=== PATIENT | female | born 1960 ===

== ENCOUNTER 2020-01-01 14:46 | Emergency (ER) | payer OTHER, SELFPAY ==
--- NOTE | ~2020-01-01 | XR_ITS ---
[id number]_[id number] DATE: 01/01/2020 15:34 INDICATION: Fall with arm tucked under breast. Generalized left rib pain TECHNIQUE: PA chest. 3 views of left ribs. COMPARISON: None FINDINGS: No left rib fractures evident. No bone destruction is detected. Normal heart size. No hilar or mediastinal enlargement. No pulmonary infiltrate or consolidation, ple ural effusion or pulmonary vascular congestion or pneumothorax. Status post anterior cervical spine surgical fusion. Status post cholecystectomy. IMPRESSION: No active cardiopulmonary disease No evidence of left rib fracture Reviewed, dictated and finalized at [facility]. Reviewed, dictated and finalized at [facility].
[2020-01-01 15:00] VITALS: BP 112/81; PULSE 60; RESP 18; TEMP 36.9; O2SAT 99
--- NOTE | 2020-01-01 16:00 | ED.GENADULT ---
HPI - General Adult General Chief complaint: Fall Stated complaint: injury to ribs Time Seen by Provider: 01/01/20 15:47 Source: patient and RN notes reviewed Mode of arrival: ambulatory Limitations: no limitations History of Present Illness HPI narrative: Patient presents today complaining of left rib pain. Reports she was pulling weeds 1 week ago at home, and fell back onto her left side with her arm tucked underneath her. Pain has been present and waxes and wanes. Pain increases with movement or deep breath. Currently rates her pain 5/10 and has been taking Advil without relief. complaint: Left rib pain Related Data Home Medications Medication Instructions Recorded Confirmed gabapentin 01/01/20 levothyroxine [Synthroid] 01/01/20 Allergies Allergy/AdvReac Type Severity Reaction Status Date / Time prochlorperazine AdvReac Intermediate Unverified 05/11/19 11:56 latex/paper tape AdvReac Mild Uncoded 11/19/16 16:22 Review of Systems Review of Systems: Narrative: CONSTITUTIONAL: Denies body aches, fever, chills, or sweats. EYES: Denies visual changes, redness, or discharge. ENT: Denies rhinorrhea, congestion, sore throat, or otalgia. CARDIOVASCULAR: Denies chest pain, palpitations, or edema. RESPIRATORY: Denies cough or dyspnea. Left rib pain GASTROINTESTINAL: Denies abdominal pain, nausea, vomiting, or diarrhea. GENITOURINARY: Denies dysuria or hematuria. SKIN: Denies rash, itching, or wounds. MUSCULOSKELETAL: Denies back pain, joint pain, or myalgia. NEUROLOGIC: Denies headache, numbness, tingling, or weakness. PSYCH: Denies depression or anxiety. [facility] Family History Family History (Updated 05/16/19 @ 15:37 by DOCTOR UNKNOWN) Other Family history of arthritis Social History Social History Smoking status: Never smoker Alcohol intake: current Comments At time of signature, I have reviewed and agree with nursing past medical, surgical, social and family history unless otherwise noted. Please see nursing chart for further information. There is no relevant family history pertinent to the presenting complaint Exam Narrative: Exam Narrative: GENERAL: Well-appearing, well-nourished, and in no acute distress. HEAD: Normocephalic, atraumatic. EYES: EOMI. No redness or drainage. Conjunctivae normal. ENT: Mucous membranes pink and moist. NECK: Normal AROM. CHEST: No respiratory distress. Clear to auscultation. Tenderness to left anterior, lateral, and posterior mid rib pain. No edema, ecchymosis, or crepitus noted. HEART: Regular rate and rhythm. No murmur appreciated. Normal peripheral pulses. ABDOMEN: Soft, nontender, nondistended, normal active bowel sounds. MUSCULOSKELETAL: No bony tenderness. EXTREMITIES: Normal range of motion. No edema. SKIN: Warm, dry, no rash. Capillary refill normal. Normal skin turgor. NEURO: No focal deficits. Alert and oriented x3. Gait steady. PSYCH: Normal affect. No signs of depression or anxiety. Course Vital Signs Vital signs: Vital Signs Temperature 98.5 F 01/01/20 15:00 Pulse Rate 60 01/01/20 15:00 Respiratory Rate 18 01/01/20 15:00 Blood Pressure 112/81 01/01/20 15:00 Pulse Oximetry 99 01/01/20 15:00 Temperature 98.5 F 01/01/20 15:00 Pulse Rate 60 01/01/20 15:00 Respiratory Rate 18 01/01/20 15:00 Blood Pressure 112/81 01/01/20 15:00 Pulse Oximetry 99 01/01/20 15:00 Reviewed. Pt has been instructed to follow up with her PCP regarding her elevated blood pressure today. Medical Decision Making Differential Diagnosis Differential Diagnosis: Rib fracture, rib contusion, muscle strain Vital Signs Vital Signs: Vital Signs Temperature 98.5 F 01/01/20 15:00 Pulse Rate 60 01/01/20 15:00 Respiratory Rate 18 01/01/20 15:00 Blood Pressure 112/81 01/01/20 15:00 Pulse Oximetry 99 01/01/20 15:00 Temperature 98.5 F 01/01/20 15:00 Pulse Rate 60 01/01/20 15:00 Respiratory Rate 18
== END 2020-01-01 16:07 | disposition home or self-care (01) ==
PROVIDERS: Emergency Provider Nurse Practitioner
DX: S20.212A Contusion of left front wall of thorax, initial encounter (principal); W19.XXXA Unspecified fall, initial encounter
CPT/HCPCS: 71101; 99213; G0463

== ENCOUNTER 2021-11-16 13:16 | Emergency (ER) | payer OTHER, SELFPAY ==
--- NOTE | ~2021-11-16 | XR_ITS ---
EXAMINATION: XR chest 2V DATE: 11/16/2021 13:59 INDICATION: Shortness of breath. TECHNIQUE: Frontal and lateral views of the chest were obtained. COMPARISON: Chest 2 views 09/08/2016 FINDINGS: The chest demonstrates clear lungs without pneumonia, pleural effusion, or pneumothorax. Th e heart size is normal. There are changes of anterior fusion procedure in cervical spine. IMPRESSION: 1. No acute cardiopulmonary disease. Reviewed, dictated and finalized at [facility]. [employer]
[2021-11-16 13:30] VITALS: BP 124/77; PULSE 65; RESP 16; TEMP 37.3; O2SAT 99
--- NOTE | 2021-11-16 13:30 | ED.GENADULT ---
HPI - General Adult General Chief complaint: Upper Respiratory Infection Stated complaint: Fever/Chest Congestion/Cough Time Seen by Provider: 11/16/21 13:48 Source: patient Mode of arrival: ambulatory Limitations: no limitations History of Present Illness HPI narrative: 61-year-old female patient presents to the [facility] with complaints of cold symptoms for 5 days. Patient states she started with a fever on Thursday as high as 102, body aches, chills. Patient states she has also had a cough with some shortness of breath. Patient states she is fully vaccinated against COVID. Patient states she did get an influenza vaccine this year. Patient states she did have COVID in 2019. Patient states she did take 2 rapid test at home which were both negative. Related Data Home Medications Medication Instructions Recorded Confirmed gabapentin 300 mg PO BID 01/01/20 levothyroxine [Synthroid] 75 mcg PO DAILY 01/01/20 besifloxacin [Besivance] drp 11/16/21 11/16/21 Allergies Allergy/AdvReac Type Severity Reaction Status Date / Time prochlorperazine AdvReac Intermediate Muscle Unverified 11/16/21 13:38 Spasms latex/paper tape AdvReac Mild Unknown Uncoded 11/16/21 13:38 Review of Systems Review of Systems: CONSTITUTIONAL: Positive fever, chills, and body aches. EYES: Denies visual changes, redness, or discharge. ENT: Positive rhinorrhea, congestion, denies sore throat, or otalgia. CARDIOVASCULAR: Denies chest pain, palpitations, or edema. RESPIRATORY: Positive cough with dyspnea. GASTROINTESTINAL: Denies abdominal pain, nausea, vomiting, or diarrhea. GENITOURINARY: Denies dysuria or hematuria. SKIN: Denies rash or itching. MUSCULOSKELETAL: Denies back pain, joint pain, or myalgia. NEUROLOGIC: Denies headache, numbness, or weakness. PSYCHIATRIC: Denies anxiety or depression. [facility] Past Medical History Medical History (Updated 11/16/21 @ 14:20 by DONTRELL De) Arthritis Hypothyroidism Pneumonia Surgical History Surgical History (Updated 11/16/21 @ 13:53 by DNOTRELL De) H/O Spinal surgery Neck surgery hardware/fusion C3, C4, C5, C6 Hx of cholecystectomy Family History Family History (Updated 05/16/19 @ 15:37 by DOCTOR UNKNOWN) Other Family history of arthritis Social History Social History Smoking status: Never smoker Alcohol intake: current Exam Narrative: GENERAL: Well-appearing, well-nourished, and in no acute distress. HEAD: Normocephalic, atraumatic. EYES: PERRLA and EOMI. ENT: Nares with erythema and edema bilaterally, no rhinorrhea or epistaxis. Mucous membranes moist. Posterior pharynx with no erythema, tonsillar lodgment, exudates or lesions present. Bilateral TMs are clear with no erythema or foreign bodies in the canal NECK: Supple. No lymphadenopathy CHEST: Patient sitting slightly tripod during exam. Patient does seem to be talking in broken sentences. Patient is slightly diminished on the left side especially with expiratory HEART: Regular rate and rhythm. No murmur heard. Normal peripheral pulses. ABDOMEN: Soft, nontender, nondistended, normal active bowel sounds. EXTREMITIES: Normal range of motion. No edema. SKIN: Warm, dry, no rash. NEURO: No focal deficits. Alert and oriented x3. Course Course Level of Care: Express Care Visit Vital Signs Vital signs: Vital Signs Temperature 37.3 C 11/16/21 13:30 Pulse Rate 65 11/16/21 13:30 Respiratory Rate 16 11/16/21 13:30 Blood Pressure 124/77 11/16/21 13:30 Pulse Oximetry 99 11/16/21 13:30 Temperature 37.3 C 11/16/21 13:30 Pulse Rate 65 11/16/21 13:30 Respiratory Rate 16 11/16/21 13:30 Blood Pressure 124/77 11/16/21 13:30 Pulse Oximetry 99 11/16/21 13:30 Vital signs reviewed Medical Decision Making Differential Diagnosis Differential Diagnosis: Differential diagnosis: Allergic rhinitis, chronic sinusitis, tonsillitis, acute sinusitis, infectious mononucleosis, s
[2021-11-18 07:58] LABS: SARS-CoV-2 RNA PCR Negative
== END 2021-11-16 14:39 | disposition home or self-care (01) ==
PROVIDERS: Emergency Provider Nurse Practitioner Family
DX: B34.9 Viral infection, unspecified (principal); Z20.822 Contact with and (suspected) exposure to COVID-19; M19.90 Unspecified osteoarthritis, unspecified site; E03.9 Hypothyroidism, unspecified
CPT/HCPCS: 71046; 87426; 87804; 99213; C9803; G0463; U0003; U0005

== ENCOUNTER 2023-05-30 08:43 | Emergency (ER) | payer OTHER, SELFPAY ==
[2023-05-30 09:14] VITALS: BP 126/81; PULSE 71; RESP 20; TEMP 36.2; O2SAT 97
--- NOTE | 2023-05-30 09:22 | ED.URI ---
HPI - URI/Sore Throat General Chief Complaint: Upper Respiratory Infection Stated Complaint: cough,ele,fever Source: patient Mode of arrival: ambulatory Limitations: no limitations History of Present Illness HPI Narrative: 62-year-old female presents to [facility] with complaints of nonproductive cough, head congestion, runny nose and low-grade fevers up to 99.7 for the past 10 days. Patient reports that she took 2 negative home COVID test. Patient is a nonsmoker. Patient denies recent travel. Patient denies sick contacts but reports that she recently started subbing at a local school. Patient has been taking [id number] Advil and complaining sinus rinses with little relief MD elicited complaint: cough, rhinorrhea and nasal congestion Onset (ago): day(s) () Able to tolerate fluids by mouth: Yes Exacerbating factors: nothing Relieving factors: nothing Treatments prior to arrival: ibuprofen Related Data Home Medications Medication Instructions Recorded Confirmed gabapentin 300 mg capsule 300 mg PO BID 01/01/20 05/30/23 levothyroxine 75 mcg tablet 75 mcg PO DAILY 01/01/20 05/30/23 (Synthroid) Allergies Allergy/AdvReac Type Severity Reaction Status Date / Time prochlorperazine AdvReac Intermediate Muscle Verified 05/30/23 09:17 Spasms latex/paper tape AdvReac Mild Unknown Uncoded 11/16/21 13:38 Review of Systems Constitutional: Constitutional: Denies chills, Denies fatigue and Reports fever(s) ENT: Denies dysphagia, Denies vertigo, Denies dizziness, Denies epistaxis, Reports nasal congestion and Denies sore throat Respiratory: Respiratory: Reports cough, Denies dyspnea and Denies wheezing Gastrointestinal: Gastrointestinal: Denies diarrhea, Denies nausea and Denies vomiting Integumentary/Breasts: Skin/Breast: Denies pruritus, Denies erythema and Denies rash Neurologic: Denies dizziness, Denies syncope and Denies headache(s) [facility] Past Medical History Medical History Arthritis Hypothyroidism Pneumonia Surgical History Surgical History H/O Spinal surgery Neck surgery hardware/fusion C3, C4, C5, C6 Hx of cholecystectomy Family History Family History Other Family history of arthritis Social History Social History Smoking status: Never smoker Alcohol intake: current Comments At time of signature, I agree with nursing past medical, surgical, social and family history. There is no relevant family history pertinent to the presenting complaint. Exam Const: General: healthy appearing and no acute distress Nutritional Appearance: well nourished Orientation/consciousness: patient oriented x3 Limitations: no limitations HENMT: Head: normal to inspection Ears: external ears normal, TM's normal bilaterally and EAC's normal Face/Nose/Sinus: Normal external nose present Face and sinus: sinuses nontender Mouth: Yes Normal oral and palatal mucosa present, Yes lip normal and Yes moist mucous membranes Teeth and gingiva: dentition normal Throat: posterior oropharynx normal and uvula midline Other: Moderate bilateral nasal congestion noted Eyes: Conjunctivae: conjunctivae normal Neck: Neck: normal visual inspection Resp: Effort & Inspection: normal respiratory effort Auscultation: clear to auscultation bilaterally, no crackles, no rales and no rhonchi Cardio: Rate: regular rate Rhythm: regular rhythm Heart sounds: no murmurs Skin: General skin exam: normal color Rashes: no rashes Neuro: Speech: normal speech Gait exam (Neuro): Normal gait present Psych: Affect: normal affect Attitude: cooperative Course Course Level of Care: Express Care Visit MDM - URI/Sore Throat MDM Narrative Medical decision making narrative: Instructed patient to take med
== END 2023-05-30 09:42 | disposition home or self-care (01) ==
PROVIDERS: Emergency Provider Nurse Practitioner Family
DX: J06.9 Acute upper respiratory infection, unspecified (principal); J45.909 Unspecified asthma, uncomplicated; E03.9 Hypothyroidism, unspecified
CPT/HCPCS: 99213; G0463

== ENCOUNTER 2023-09-09 10:43 | Emergency (ER) | payer MEDICARE, SELFPAY ==
[2023-09-09 10:59] VITALS: BP 114/77; PULSE 64; RESP 16; TEMP 35.9; O2SAT 99
--- NOTE | 2023-09-09 11:16 | ED.EAR ---
HPI - Ear Problem General Chief complaint: Ear Stated complaint: Right Ear Pain Source: patient, RN notes reviewed and old records reviewed Mode of arrival: ambulatory Limitations: no limitations History of Present Illness HPI Narrative: 63-year-old female presents to [facility] with complaint right ear pressure this started approximately 1 week ago. Patient states he is getting worse. Patient denies any other symptoms MD Complaint: ear pain Location: right ear Duration: intermittent Severity: moderate Related Data Home Medications Medication Instructions Recorded Confirmed gabapentin 300 mg capsule 300 mg PO BID 01/01/20 05/30/23 levothyroxine 75 mcg tablet 75 mcg PO DAILY 01/01/20 05/30/23 (Synthroid) rosuvastatin 5 mg tablet mg 09/09/23 Allergies Allergy/AdvReac Type Severity Reaction Status Date / Time prochlorperazine AdvReac Intermediate Muscle Verified 05/30/23 09:17 Spasms latex/paper tape AdvReac Mild Unknown Uncoded 11/16/21 13:38 Review of Systems Constitutional: Constitutional: Reports no additional constitutional complaints, Denies body ache(s), Denies chills, Denies fatigue, Denies fever(s) and Denies headache(s) Eyes: Eyes: Reports no additional eye complaints and Denies blurry vision ENT: Reports system reviewed and no additional complaints, except as documented, Denies vertigo, Denies dizziness, Denies ear discharge, Reports otalgia, Denies facial pain, Denies headache(s), Denies nasal congestion, Denies nasal discharge, Denies sinus pain, Denies sinus pressure and Denies sore throat Cardiovascular: Cardiovascular: Reports no additional cardiovascular complaints, Denies chest pain, Denies chest pain at rest, Denies rapid heart rate and Denies dyspnea Respiratory: Respiratory: Reports no additional respiratory complaints, Denies chest congestion, Denies cough, Denies pain on inspiration, Denies pain with cough and Denies dyspnea Gastrointestinal: Gastrointestinal: Denies abdominal pain, Denies diarrhea, Denies nausea and Denies vomiting Integumentary/Breasts: Skin/Breast: Denies rash Neurologic: Reports system reviewed and no additional complaints, except as documented, Denies vertigo, Denies dizziness and Denies headache(s) Endocrine: Endocrine: Denies fatigue PMFSH Past Medical History Medical History Arthritis Hypothyroidism Pneumonia Surgical History Surgical History H/O Spinal surgery Neck surgery hardware/fusion C3, C4, C5, C6 Hx of cholecystectomy Family History Family History Other Family history of arthritis Social History Social History Smoking status: Never smoker Alcohol intake: current Comments At the time of my signature, I reviewed and agree with the nursing past medical, surgical, social, and family history. There is no relevant family history pertinent to the patient complaint. Exam Const: General: cooperative, healthy appearing, no acute distress and well nourished Nutritional Appearance: well nourished Orientation/consciousness: patient oriented x3 Limitations: no limitations HENMT: Head: normal to inspection and normocephalic Ears: external ears normal, mastoids normal, Abnormal EAC present and TM abnormal wth effusion serous on the right Face/Nose/Sinus: normal facial exam Face and sinus: normal facial exam Mouth: Yes Normal oral and palatal mucosa present, Yes oropharynx normal and Yes moist mucous membranes Throat: tonsils normal, uvula midline and no uvular edema Eyes: General: appearance normal, both eyes and all related structures Sclera: sclerae normal Pupils: Equal, round and reactive pupils present Resp: Effort & Inspection: normal respiratory effort, able to speak in complete sentences, no audible wheezes
== END 2023-09-09 11:23 | disposition home or self-care (01) ==
PROVIDERS: Emergency Provider Registered Nurse
DX: H65.01 Acute serous otitis media, right ear (principal); M19.90 Unspecified osteoarthritis, unspecified site; E03.9 Hypothyroidism, unspecified
CPT/HCPCS: 99211; G0463

== ENCOUNTER 2023-09-14 08:43 | Emergency (ER) | payer MEDICARE, SELFPAY ==
--- NOTE | ~2023-09-14 | XR_ITS ---
EXAMINATION: XR foot RT min 3V DATE: 09/14/2023 09:09 INDICATION: Right foot injury. TECHNIQUE: 4 views of right foot were obtained. COMPARISON: Right foot radiographs 06/27/2019 FINDINGS: There is moderate hallux valgus. No acute fracture. There is an old healed fracture of diap hysis of fifth metatarsal. There is mild osteoarthritis of first metatarsophalangeal joint and some o f the interphalangeal joints. There is an enthesophyte at plantar aspect of calcaneal tuberosity. IMPRESSION: 1. Polyarticular osteoarthritis. 2. Moderate hallux valgus. Reviewed, dictated and finalized at location [facility]. [employer]
[2023-09-14 08:58] VITALS: BP 129/69; PULSE 63; RESP 16; TEMP 36.1; O2SAT 98
--- NOTE | 2023-09-14 09:09 | ED.LOWEXIN ---
HPI - Extremity Injury (Lower) General Chief Complaint: Extremity Injury, Lower Stated Complaint: right foot pain Source: patient Mode of arrival: ambulatory Limitations: no limitations History of Present Illness HPI Narrative: 63 y/o female presented for c/o right foot pain, bruising and swelling after injury 2 days ago. States the foot was stepped on while at a wedding, she says someone wearing high heels scraped the top of the foot near the 4th toe. After the wedding, she reports large amount of swelling over the site of the injury which subsided the next morning. She has been able to walk on the foot. She has taken ibuprofen. Denies numbness, tingling, weakness, or deformity. Related Data Home Medications Medication Instructions Recorded Confirmed gabapentin 300 mg capsule 300 mg PO BID 01/01/20 05/30/23 levothyroxine 75 mcg tablet 75 mcg PO DAILY 01/01/20 05/30/23 (Synthroid) rosuvastatin 5 mg tablet mg 09/09/23 Allergies Allergy/AdvReac Type Severity Reaction Status Date / Time prochlorperazine AdvReac Intermediate Muscle Verified 05/30/23 09:17 Spasms latex/paper tape AdvReac Mild Unknown Uncoded 11/16/21 13:38 Review of Systems Review of Systems: CONSTITUTIONAL: Denies body aches, fever, chills EYES: Denies visual changes ENT: Denies rhinorrhea, congestion CARDIOVASCULAR: Denies chest pain, palpitations, or edema. RESPIRATORY: Denies cough or dyspnea. GASTROINTESTINAL: Denies abdominal pain, nausea, vomiting, or diarrhea. SKIN: Denies rash, itching, or wounds. MUSCULOSKELETAL: Reports right foot pain, bruising Denies back pain NEUROLOGIC: Denies headache, numbness, tingling, or weakness. All systems reviewed & are unremarkable except as noted in HPI and below PMFSH Past Medical History Medical History Arthritis Hypothyroidism Pneumonia Surgical History Surgical History H/O Spinal surgery Neck surgery hardware/fusion C3, C4, C5, C6 Hx of cholecystectomy Family History Family History Other Family history of arthritis Social History Social History Smoking status: Never smoker Alcohol intake: current Comments At time of signature, I have reviewed and agree with nursing past medical, surgical, social and family history unless otherwise noted. Please see nursing chart for further information. There is no relevant family history pertinent to the presenting complaint Exam Narrative: GENERAL: Well-appearing CHEST: Speaks in full sentences. No respiratory distress. HEART: Regular rate and rhythm. Normal and equal peripheral pulses. EXTREMITIES: Right foot has normal strength and sensation, normal range of motion. Mild dorsal swelling to midfoot. Moderate ecchymosis to MTPs1-4. No point tenderness. No open wounds, or obvious deformity; alignment normal, pulse palpable and equal bilaterally, skin warm, dry, pink. Capillary refill less than 3 seconds. SKIN: Warm, dry, no rash. NEURO: Alert and oriented x3. PSYCH: Normal mood and affect Extrem: Ankle/foot/toe images: 1. area of ecchymosis Course Course Emergency Course: Patient is aware of diagnosis, understands and agrees to treatment plan. Anticipatory guidance given. Patient agrees to follow-up as directed and is aware of reasons to seek care at the emergency department. Portions of this record may have been created with voice recognition software Level of Care: Express Care Visit Vital Signs Vital signs: Vital Signs Temperature 97 F L 09/14/23 08:58 Pulse Rate 63 09/14/23 08:58 Respiratory Rate 16 09/14/23 08:58 Blood Pressure 129/69 09/14/23 08:58 Pulse Oximetry 98 09/14/23 08:58 Oxygen Delivery Room Air 09/14/23 08:58 Temperature 97 F L 09/14/23 08:58
== END 2023-09-14 09:21 | disposition home or self-care (01) ==
PROVIDERS: Emergency Provider Nurse Practitioner Family
DX: S90.31XA Contusion of right foot, initial encounter (principal); W50.0XXA Accidental hit or strike by another person, initial encounter; M19.90 Unspecified osteoarthritis, unspecified site; E03.9 Hypothyroidism, unspecified
CPT/HCPCS: 73630; 99213; G0463

== ENCOUNTER 2024-03-10 21:00 | Emergency (ER) | payer MEDICARE, SELFPAY ==
--- NOTE | ~2024-03-10 | XR_ITS ---
XR chest 2V Ordering provider: Michi Javier DO History: 63 years Female with . chest tightness DIAPHORETIC . Comparison: April 18, 2022 FINDINGS: MEDIASTINUM: The cardiac silhouette is not enlarged. LUNGS: No infiltrates, effusions or pneumothorax. OTHER: No free air under the diaphragm. IMPRESSION: No acute cardiopulmonary pathology. Reviewed, dictated and finalized at location A.
[2024-03-10 21:03] VITALS: BP 157/78; PULSE 58; RESP 20; O2SAT 97
[2024-03-10 21:06] VITALS: BP 157/78; PULSE 57; RESP 20; O2SAT 98
--- NOTE | 2024-03-10 21:07 | ECG_ITS ---
Test Date: 2024-03-10 21:09:29 Measurements Intervals Brooks Rate: 53 P: 34 ME: 182 QRS: -27 QRSD: 84 T: 65 QT: 454 QTc: 427 Interpretive Statements SINUS BRADYCARDIA POSSIBLE RIGHT VENTRICULAR CONDUCTION DELAY DELAYED PRECORDIAL R/S TRANSITION VOLTAGE CRITERIA FOR LVH MINIMAL Q WAVES- HIGH LATERAL LEADS BASELINE ARTIFACT- I, II, III, AVR, AVL BORDERLINE ECG No previous ECG available for comparison Electronically Signed On 03-11-2024 06:14:16 CDT by Jeanmarie Galvan D.O.
[2024-03-10 21:09] VITALS: BP 157/78; PULSE 51; RESP 19; TEMP 36.5; O2SAT 99
[2024-03-10 21:16] VITALS: BP 148/118; PULSE 57; RESP 22; O2SAT 99
[2024-03-10 21:42] LABS: Basophils Absolute Auto 0.1 K/mm3 (0.0-0.1); Basophils Percent Auto 1.2 % (0.2-1.2); Eosinophils Absolute Auto 0.3 K/mm3 (0-0.3); Eosinophils Percent Auto 3.9 % (0-4.4); Hemoglobin 13.6 g/dL (12.0-15.0); Immature Granulocyte Absolute 0.02 K/mm3 (0.00-0.031); Immature Granulocyte Percent A 0.3 % (0-0.5); Lymphocytes Absolute Auto 2.77 K/mm3 (0.9-3.2); Mean Corpuscular HGB Conc 33.2 g/dl (32-36); Mean Corpuscular Hemoglobin 29.8 pg (26-34); Mean Corpuscular Volume 89.7 fl (80-100); Mean Platelet Volume 10.7 fl (7.4-10.4); Monocytes Absolute Auto 0.4 K/mm3 (0.1-0.6); Monocytes Percent Auto 6.4 % (2.6-8.5); Neutrophils Absolute Auto 3.2 K/mm3 (1.3-6.7); Neutrophils Percent Auto 47.2 % (45.5-73.1); Platelet Count Result 253 k/mm3 (150-375); Red Blood Count 4.57 M/mm3 (4.2-5.4); Red Cell Distribution Width 12.7 % (11.5-14.5); White Blood Count 6.8 K/mm3 (4.5-10.0)
[2024-03-10 21:53] LABS: Alanine Aminotransferase 16 U/L (6-35); Albumin Level 4.5 g/dL (3.5-5.1); Alkaline Phosphatase 54 U/L (38-126); Anion Gap 8 mmol/L (4-12); Aspartate Amino Transferase 23 U/L (14-36); Bilirubin,Total 0.8 mg/dL (0.2-1.3); Blood Urea Nitrogen 13 mg/dL (7-17); Calcium 9.6 mg/dL (8.4-10.2); Carbon Dioxide 23 mmol/L (22-30); Chloride 110 mmol/L (98-107); Estimated CRCL calculation 70 ml/min; Estimated Glomerular Filt Rate > 60; Glucose 96 mg/dL (65-110); Lipase 105 U/L (23-300); Potassium 4.1 mmol/L (3.4-5.0); Sodium 141 mmol/L (137-145)
[2024-03-10 21:55] LABS: Prothrombin Time 13.2 Seconds (11.1-14.7)
[2024-03-10 21:56] LABS: Partial Thromboplastin Time 27.9 Seconds (22.3-36.8)
[2024-03-10 22:05] LABS: Troponin I < 0.012 ng/mL (0.000-0.034)
[2024-03-10 22:36] LABS: D Dimer 0.44 ug/mL (<0.48)
[2024-03-10 22:48] VITALS: BP 143/86; PULSE 52; RESP 20; O2SAT 99
--- NOTE | 2024-03-10 23:03 | ED.CHESTPAIN ---
HPI - Chest Pain General Chief Complaint: Chest Pain Stated Complaint: chest pain Time Seen by Provider: 03/10/24 22:03 Source: patient Limitations: no limitations History of Present Illness HPI narrative: Patient is a 63-year-old female presents to the emergency department complaining of chest pain. Patient notes that chest pain started around 4:00 p.m., at rest, no history of the past, describes it as a pressure-like sensation in the middle of her chest, overall been constant, also feels like she needs to burp and has not really been able to, denies radiation of the pain, admits to some slight associated shortness of breath, has not noticed anything making the pain better nor worse, has not tried anything for the pain. Patient denies high blood pressure, diabetes, smoking. Patient denies history of heart disease. Patient denies history of blood clots. Patient denies unilateral lower extremity swelling. Patient denies abdominal pain, nausea, vomiting, history of abnormal heart rhythms, numbness, weakness, cough, fever, recent injuries, recent illness. Related Data Home Medications Medication Instructions Recorded Confirmed gabapentin 300 mg capsule 300 mg PO BID 01/01/20 05/30/23 levothyroxine 75 mcg tablet 75 mcg PO DAILY 01/01/20 05/30/23 (Synthroid) rosuvastatin 5 mg tablet mg 09/09/23 Allergies Allergy/AdvReac Type Severity Reaction Status Date / Time prochlorperazine AdvReac Intermediate Muscle Verified 03/10/24 21:18 Spasms latex/paper tape AdvReac Mild Unknown Uncoded 03/10/24 21:18 Review of Systems Review of Systems: A 10 system review of systems was completed on the patient and is negative except for what is stated in the HPI. Nursing and ancillary documentation was reviewed. [facility] Past Medical History Medical History Arthritis Hypothyroidism Pneumonia Surgical History Surgical History H/O Spinal surgery Neck surgery hardware/fusion C3, C4, C5, C6 Hx of cholecystectomy Family History Family History Other Family history of arthritis Social History Social History Smoking status: Never smoker Alcohol intake: current Comments At time of signature, I have reviewed and agree with nursing past medical, surgical, social and family history unless otherwise noted. Please see the nursing chart for further information. There is no relevant family history pertinent to the presenting complaint. Exam Narrative: CONST: No acute distress. Well nourished. HENMT: Head is normocephalic and atraumatic. Moist mucous membranes. No posterior oropharynx erythema. EYES: No conjunctival icterus, injection, or pallor. PERRL. NECK: No meningeal signs. No JVD. RESP: Able to speak in full sentences. Normal respiratory effort. CTAB. CARDIO: Regular rate. Regular rhythm. 2+ DP and radial pulses bilaterally. GI: Nondistended. No tenderness to palpation. Soft. : No CVA tenderness to palpation. SKIN: No rashes or lesions noted on exposed skin. NEURO: Oriented x3. Moves all extremities. EXTREM/MSK/BACK: No pedal edema. PSYCH: Normal affect. Course Vital Signs Vital signs: Vital Signs Pulse Rate 58 L 03/10/24 21:03 Respiratory Rate 20 03/10/24 21:03 Blood Pressure 157/78 H 03/10/24 21:03 Pulse Oximetry 97 03/10/24 21:03 Oxygen Delivery Room Air 03/10/24 21:03 Temperature 97.7 F 03/10/24 21:09 Pulse Rate 52 L 03/10/24 23:12 Respiratory Rate 14 03/10/24 23:12 Blood Pressure 165/83 H 03/10/24 23:12 Pulse Oximetry 100 03/10/24 23:12 Oxygen Delivery Room Air 03/10/24 21:17 MDM - Chest Pain MDM Narrative Medical decision making narrative: Patient presents with the above complaint. Initial vitals are remarkable for n
[2024-03-10 23:12] VITALS: BP 165/83; PULSE 52; RESP 14; O2SAT 100
[2024-03-10] MEDS: FAMOTIDINE 20 MG/2 ML VIAL IV PUSH (23:12)
--- NOTE | 2024-03-10 23:53 | ECG_ITS ---
Test Date: 2024-03-10 23:58:46 Measurements Intervals [place] Rate: 52 P: 29 ME: 188 QRS: -13 QRSD: 87 T: 48 QT: 469 QTc: 440 Interpretive Statements SINUS BRADYCARDIA POSSIBLE RIGHT VENTRICULAR CONDUCTION DELAY DELAYED PRECORDIAL R/S TRANSITION LEFT VENTRICULAR HYPERTROPHY MINIMAL Q WAVES- HIGH LATERAL LEADS BASELINE ARTIFACT- I, II, III, AVR, AVL, AVF BORDERLINE ECG Compared to ECG 03/10/2024 21:09:29 No significant changes Electronically Signed On 03-11-2024 06:15:36 CDT by Jeanmarie Galvan D.O.
[2024-03-11 00:34] LABS: Troponin I < 0.012 ng/mL (0.000-0.034)
[2024-03-11 01:21] VITALS: BP 158/86; PULSE 67; RESP 18; O2SAT 99
== END 2024-03-11 01:22 | disposition home or self-care (01) ==
PROVIDERS: Emergency Provider Student in an Organized Health Care Education/Training Program
DX: R07.9 Chest pain, unspecified (principal); E03.9 Hypothyroidism, unspecified; M19.90 Unspecified osteoarthritis, unspecified site; Z98.1 Arthrodesis status; Z87.01 Personal history of pneumonia (recurrent); Z90.49 Acquired absence of other specified parts of digestive tract; Z79.899 Other long term (current) drug therapy; R00.1 Bradycardia, unspecified; R94.31 Abnormal electrocardiogram [ECG] [EKG]
CPT/HCPCS: 36415; 71046; 80053; 83690; 84484; 85025; 85380; 85610; 85730; 93005; 96374; 99284

== ENCOUNTER 2024-08-16 16:07 | Emergency (ER) | payer MEDICARE, SELFPAY ==
[2024-08-16 16:18] VITALS: BP 121/75; PULSE 67; RESP 18; TEMP 36.3; O2SAT 99
--- NOTE | 2024-08-16 16:49 | ED_ITS ---
HPI - URI/Sore Throat General Chief Complaint: Upper Respiratory Infection Stated Complaint: upper respiratory Time Seen by Provider: 08/16/24 16:49 Source: patient, RN notes reviewed and old records reviewed Mode of arrival: ambulatory Limitations: no limitations History of Present Illness HPI Narrative: 84-year-old female to [facility] with complaint of nonproductive cough, chest congestion, pain with deep breathing. Patient reports attempting to treat at home with Afrin and Tylenol with some relief. Patient states that symptoms have been present for 6 days. Patient endorses also attempting to treat today with 1 of her 's Raysa Vigil without relief. Patient denies shortness of breath, chest pain, fever, pertinent medical history. Patient able to tolerate fluids by mouth. Patient resting comfortably in exam room in no acute distress. Respirations even and nonlabored. Patient able to speak in complete sentences without difficulty. Related Data Home Medications ?Medication ?Instructions ?Recorded ?Confirmed ?Last Taken ?Type gabapentin 300 mg capsule 300 mg PO BID 01/01/20 08/16/24 Unknown History levothyroxine 75 mcg tablet 75 mcg PO DAILY 01/01/20 08/16/24 Unknown History (Synthroid) rosuvastatin 5 mg tablet mg 09/09/23 Unknown History Allergies Allergy/AdvReac Type Severity Reaction Status Date / Time prochlorperazine AdvReac Intermediate Muscle Verified 08/16/24 16:53 Spasms latex/paper tape AdvReac Mild Unknown Uncoded 08/16/24 16:53 Review of Systems Review of Systems: All systems reviewed & are unremarkable except as noted in HPI and below Constitutional: Constitutional: Reports no additional constitutional complaints Eyes: Eyes: Reports no additional eye complaints ENT: Reports system reviewed and no additional complaints, except as documented Cardiovascular: Cardiovascular: Reports no additional cardiovascular complaints, Denies chest pain and Denies dyspnea Respiratory: Respiratory: Reports as per HPI, Reports chest congestion, Reports cough, Reports pain on inspiration, Reports pain with cough and Denies dyspnea Musculoskeletal: Musculoskeletal: Reports no additional musculoskeletal complaints Neurologic: Reports system reviewed and no additional complaints, except as documented Psychiatric: Psychiatric: Reports no additional psychiatric complaints PMFSH Past Medical History Medical History Hypothyroidism Arthritis Pneumonia Surgical History Surgical History H/O Spinal surgery Neck surgery hardware/fusion C3, C4, C5, C6 Hx of cholecystectomy Family History Family History Other Family history of arthritis Social History Social History Smoking status: Never smoker Alcohol intake: current Comments At the time of my signature, I reviewed and agree with the nursing past medical, surgical, social, and family history. There is no relevant family history pertinent to the patient complaint. Exam Const: General: cooperative, comfortable, no acute distress, well developed, alert, ill appearing acutely, tired appearing, uncomfortable, well groomed and well nourished Nutritional Appearance: well nourished Orientation/consciousness: patient oriented x3 Limitations: no limitations HENMT: Head: normal to inspection Ears: external ears normal and TM abnormal with fluid behind the TM bilateral Face/Nose/Sinus: Normal external nose present, Normal nares present, normal facial exam, No erythema, No edema and sinus tenderness Face and sinus: normal facial exam, no erythema and no edema Mouth: Yes Normal oral and palatal mucosa present Throat: postnasal drainage Eyes: General: appearance normal, both eyes and all related structures Neck: Neck: normal visual inspection, full ROM and no meningeal signs Lymphatic: no lymphedema noted and lymphadenopathy anterior cervical Chest: Chest palpation & inspection: normal inspection of the chest Resp: Effort & Inspection: normal respiratory effort and able to speak in complete sentences Auscultation: rhonchi upper bilaterally Cardio: Jugular venous distension: no JVD Rate: regular rate Rhythm: regular rhythm Back/Spine/Pelvis: Cervical Spine: cervical ROM normal Skin: General skin exam: normal color, no rashes or lesions noted and turgor normal Neuro: General: patient oriented x3, gait normal, moves all extremities and no meningeal signs Speech: normal speech Gait exam (Neuro): Normal gait present Extrem: General: normal to inspection, full ROM and capillary refill normal Psych: Appearance: grossly normal and well kempt Course Course Emergency Course: Some parts of this dictation were generated by voice recognition software and may contain typographical and/or grammatical inaccuracies. Level of Care: Express Care Visit Vital Signs Vital signs: Vital Signs Temperature 36.3 C L 12/10/24 16:18 Pulse Rate 67 08/16/24 16:18 Respiratory Rate 18 08/16/24 16:18 Blood Pressure 121/75 08/16/24 16:18 Pulse Oximetry 99 08/16/24 16:18 Oxygen Delivery Room Air 08/16/24 16:18 Temperature 36.3 C L 08/16/24 16:18 Pulse Rate 67 08/16/24 16:18 Respiratory Rate 18 08/16/24 16:18 Blood Pressure 121/75 08/16/24 16:18 Pulse Oximetry 99 08/16/24 16:18 Oxygen Delivery Room Air 08/16/24 16:18 reviewed MDM - URI/Sore Throat MDM Narrative Medical decision making narrative: 84-year-old female to Express Care with complaint of nonproductive cough, chest congestion, pain with deep breathing. Patient reports attempting to treat at home with Afrin and Tylenol with some relief. Patient states that symptoms have been present for 6 days. Patient endorses also attempting to treat today with 1 of her 's Tessalon Perles without relief. Patient denies shortness of breath, chest pain, fever, pertinent medical history. Patient able to tolerate fluids by mouth. Patient resting comfortably in exam room in no acute distress. Respirations even and nonlabored. Patient able to speak in complete sentences without difficulty. On exam, bilateral TMs with fluid, erythematous. Posterior oropharynx erythematous with postnasal drainage. Anterior cervical lymphadenopathy present. Auscultation, bilateral upper rhonchi present. Patient is sitting comfortably in exam room nontoxic in appearance. Patient appropriate for outpatient treatment and follow-up. Discharge instructions reviewed with patient, as well as provided in writing per nursing staff. The instructions also include specific and strict return/GO TO THE ER as well as f/u information. All questions have been answered, and the patient deny any further questions with discharge and discharge plan. Some parts of this dictation were generated by voice recognition software and may contain typographical and/or grammatical inaccuracies. Differential Diagnosis Differential diagnosis: Likely upper respiratory infection, croup, otitis media, sinusitis, viral infection, bronchitis, influenza and pharyngitis Discharge Plan Discharge Clinical Impression: Sinusitis, Bronchitis Patient Disposition: Home, Self-Care Condition: Stable Instructions: Antibiotic Form Additional Instructions: -Alternate Tylenol and Motrin per package directions for fever or pain. -Antihistamine medication such as Benadryl at night and Zyrtec/Claritin/Rae during the day can help improve symptoms. -Use Flonase twice a day for 5 days then daily to help reduce the inflammation and dry up your sinuses. -You can also use Sudafed or Mucinex. Be sure to drink plenty of water with these medications at least 8 ounces with every dose and it is important to drink 8 to 10 glasses of water per day. Water is a natural decongestant -Eat and drink things that are easy to swallow, like tea or soup, or popsicles. -Oral rinses such as: Salt water gargles and/or may use topical anesthetic (eg. Chloraseptic spray) or lozenges to relieve dryness or throat pain). -Frequent hand washing or hand wedding consultant is one of the best ways to prevent spread of infection. -Using a vaporizer or humidifier at night will also help thin secretions and help with coughing up phlegm. -Follow up with primary care provider in 2-3 days if condition is not improving; or seek ER visit if you have trouble breathing, cannot drink enough fluids, have muffled voice, difficulty opening your mouth, or severe swelling. Patient Language: Pashto Prescriptions: New azithromycin 250 mg tablet 250 mg PO DAILY Qty: 6 0RF Rx Instructions: 250 mg orally. Take TWO tablets today, then one tablet daily for 4 days. amoxicillin 875 mg tablet 875 mg PO Q12H Qty: 20 0RF No Action rosuvastatin 5 mg tablet levothyroxine [Synthroid] 75 mcg tablet 75 mcg PO DAILY gabapentin 300 mg capsule 300 mg PO BID loratadine [Claritin] 10 mg tablet 10 mg PO DAILY Qty: 20 0RF famotidine 20 mg tablet 20 mg PO DAILY Qty: 14 0RF Follow-up/Referrals: PHYSICIAN NOT ON STAFF,NONSTAFF [Primary Care Provider] -
== END 2024-08-16 17:31 | disposition home or self-care (01) ==
PROVIDERS: Emergency Provider Nurse Practitioner Family
DX: J32.9 Chronic sinusitis, unspecified (principal); J40 Bronchitis, not specified as acute or chronic; E03.9 Hypothyroidism, unspecified; M19.90 Unspecified osteoarthritis, unspecified site
CPT/HCPCS: 99213; G0463